=== PATIENT | male | born 1995 | race African-American/Black ===

== ENCOUNTER 2021-10-25 10:28 | Emergency (ER) | payer OTHER ==
[~2021-10-25] VITALS: Ht 172.7 cm; Wt 78.0 kg
[2021-10-25] MEDS ORDERED: IBUPROFEN 600MG TABLET PO ONE (11:00)
[2021-10-25 11:54] VITALS: BP 127/77
[2021-10-25] MEDS ORDERED: NAPR-1176 MT (12:30)
== END 2021-10-25 12:40 | disposition home or self-care (01) ==
LOC: ER 10:28
DX: M94.0 Chondrocostal junction syndrome [Tietze] (principal)
CPT/HCPCS: 71045; 93005; 99283

== ENCOUNTER 2021-10-29 08:42 | Emergency (ER) | payer OTHER ==
[~2021-10-29] VITALS: Ht 177.8 cm; Wt 75.0 kg
[~2021-10-29 08:42] MED LIST: NAPR-1176 MT
[2021-10-29] MEDS ORDERED: DOXY100C5 MT (08:53)
[2021-10-29] MEDS ORDERED: LIDOCAINE HCL 1% 20ML VIAL (Pyxis) INJ INFIL ONE (09:00)
[2021-10-29] MEDS ORDERED: CEFTRIAXONE SODIUM 1 G/VIAL IM ONE (09:00)
[2021-10-29 09:41] VITALS: BP 117/86
[2021-10-31 04:07] LABS: NEISSERIA GONORRHOEAE NAA Negative (Negative)
== END 2021-10-29 09:40 | disposition home or self-care (01) ==
LOC: ER 08:42
DX: A64 Unspecified sexually transmitted disease (principal)
CPT/HCPCS: 87491; 87591; 99283; J3490; 99281